=== PATIENT | male | born 1980 | race Caucasian/White ===

== ENCOUNTER 2024-03-22 13:06 | Emergency (ER) | payer BC, OTHER ==
[2024-03-22] MEDS: Ketorolac 60 MG/2 ML SDV IM ONE (13:41)
[2024-03-22] MEDS: Lidocaine 1% 10 ML MDV INJECT ONE (13:42)
[2024-03-22] MEDS: Diphtheria,Pertussis(Acell),Tetanus Vaccine 0.5 ML Syringe IM ONE (15:01)
== END 2024-03-22 14:50 | disposition home or self-care (01) ==
LOC: JD.ED 13:06
DX: S81.811A Laceration without foreign body, right lower leg, initial encounter (principal); Z23 Encounter for immunization; W26.8XXA Contact with other sharp object(s), not elsewhere classified, initial encounter
CPT/HCPCS: 12001; 90471; 90715; 96372; 99282; J1885; J3490